=== PATIENT | male | born 1965 | race Caucasian/White ===

== ENCOUNTER 2024-10-21 15:35 | Emergency (ER) | payer OTHER ==
[~2024-10-21] VITALS: Ht 175.3 cm; Wt 99.8 kg
[2024-10-21 16:10] VITALS: BP 133/87; TEMP 98.3
[2024-10-21] MEDS ORDERED: IBUP-1490 PO (17:08)
[2024-10-21 17:17] VITALS: O2SAT 99
== END 2024-10-21 17:18 | disposition home or self-care (01) ==
LOC: ER 15:44
DX: M25.522 Pain in left elbow (principal); M25.512 Pain in left shoulder; M25.511 Pain in right shoulder; M54.2 Cervicalgia
CPT/HCPCS: 73090-TC